=== PATIENT | female | born 1945 | race Caucasian/White ===

== ENCOUNTER → 2019-06-08 | Day surgery (SDC) | payer MEDICARE ==
[2019-06-07 09:48] VITALS: BMI 45.4
[~2019-06-08] MED LIST: Bupivacaine PF 0.5% 30 ML VIAL ONE; EPINEPHrine 1 MG/ML AMP ONE; Lidocaine 2% PF 5 ML VIAL ONE
== END ==
LOC: SDC 11:10
PROVIDERS: ATTEND Anesthesiology Pain Medicine
DX: M54.16 Radiculopathy, lumbar region (principal); G89.4 Chronic pain syndrome; M96.1 Postlaminectomy syndrome, not elsewhere classified; Z53.29 Procedure and treatment not carried out because of patient's decision for other reasons
CPT/HCPCS: J0171; J2001; S0020

== ENCOUNTER 2019-09-20 13:39 | Outpatient (CLI) | payer MEDICARE ==
[~2019-09-20 13:39] MED LIST changes: -Bupivacaine PF 0.5% 30 ML VIAL ONE; -EPINEPHrine 1 MG/ML AMP ONE; -Lidocaine 2% PF 5 ML VIAL ONE; +Magnevist 469MG/ML 20 ML VIAL ONE
--- NOTE | 2019-09-20 17:18 | MRI ---
MRI LUMBAR SPINE WITH AND WITHOUT CONTRAST: DATE: 09/20/2019 HISTORY: 73-year-old female with lumbar spinal stenosis with neurogenic claudication ICD-10: M 48.062, low leonor k pain with bilateral lower extremity weakness COMPARISON: 01/05/2014 TECHNIQUE: Multiple sequences obtained in axial and sagittal planes, pre and post IV injection of gadolinium-bas ed contrast agent. FINDINGS: Cross fused ectopia of the kidneys. 5 lumbar-type vertebrae. Distended urinary bladder. As previously demonstrated, there remain interbody graft material, as well as anteriorly placed screw s extending deep into the endplates and vertebral bodies, at the L4-5 and L5-S1 disc spaces. Now, there are new bilateral pedicle screws at L3, and new interbody cage material at L3-4 disc space . The plain radiograph of today demonstrates that the vertical interlocking rods are bilaterally fractu red at L4-5, and displaced mildly. There also a new midline decompressive laminectomy defect at L3-4. Broadly abutting the dorsal surface of the thecal sac, there is a new approximately 3.5 x 3 x [address] operative fluid collection posterior to the spinal canal, occupying the laminectomy defect, between the lateral masses. The magnetic susceptibility artifact caused by the metallic hardware make s it slightly difficult to evaluate for enhancement. Posterior to the dorsal lumbar fascia, extending from approximately the L1 level to the lower sacral levels, there are extensive, very irregular T2 hyperintense signal abnormalities throughout the posterior subcutaneous fat. This is nonspecific, and could represent postoperative edema, granulation tissue, scar tissue, or a combination of these. This is greater than on the previous MRI. Minimal grade 1 anterolisthesis of L4 on L5 is unchanged. No high-grade narrowing of the T12-L1, L1-2 , or L2-3 disc spaces. T12-L1:No significant central or neural foraminal stenosis as seen on sagittal images. Axial images n ot obtained at this level. L1-2:Mild disc bulge. Mild bilateral neural foraminal stenosis. No high-grade central stenosis. L2-3:Slight retrolisthesis of L2 on L3. Disc space preserved. There is new moderate ligamentum flavum thickening due to facet DJD. Minimal disc bulge. These factors result in new moderate central spinal canal stenosis and moderate bilateral neural foraminal stenosis. L3-4:The new laminectomy results in resolution of the previously demonstrated high-grade central spin al canal stenosis. The thecal sac is now generous. No significant right neural foraminal stenosis. Possible mild or moderate left neural foraminal stenosis. (Difficult to evaluate neural foramina yanelis use of hardware artifact) L4-5:There appears to be old bilateral hemilaminotomy defects, as was the case previously. New greate r degenerative hypertrophy of left facet complex slightly indents left lateral edge of the thecal sac. No high-grade central spinal canal stenosis. There is left lateral recess stenosis and moderate left neural foraminal stenosis. Mild right neural foraminal stenosis. L5-S1:No central stenosis. Mild right neural foraminal stenosis. Mild to moderate left neural foramin al stenosis. IMPRESSION: 1) in addition to the previously demonstrated posterior lumbar interbody fusion at L4-L5-S1 with hard taylor, there is now new posterior lumbar interbody fusion with hardware at L3-4. 2) the vertical interlocking rods are bilaterally broken at L4-5. It is assumed that this was intenti onal to facilitate placement of the new hardware, but correlation with surgical details is recommended. 3) interval decompressive laminectomy at L3-4, relieving the previously demonstrated high-grade centr al spinal canal stenosis there. 4.) moderate size post surgical fluid collection abutting the dorsal surface of thecal sac from L3-4 to L4-5 at the sites of new laminectomies there. 5) extensive postsurgical changes in the dorsal subcutaneous fat. 6) interval development of bilateral facet osteoarthrosis at L2-3, resulting in new moderate central spinal canal stenosis. 7) various degrees of neural foraminal stenosis 8) Crossed fused ectopia of the kidneys.
--- NOTE | 2019-09-20 19:01 | RAD ---
LUMBAR SPINE: 09/20/19 Two views. HISTORY: Spinal stenosis. Compared to a CT cervical spine from 2015. Anterior screws transfix L4-5 and L5-S1 with interbody implants. These were present on 2015 exam. Ped icle screws at L5-S1 are again noted and were present at that time. New pedicle screws have been plac ed at L2-3 with interbody implant at this level since the prior CT. The lateral rods connecting these pedicle screws on each side are not contiguous. Recommend clinical correlation regarding possible fracture of these robs at the L3-4 level. There is mild degenerative spurring from the lumbar vertebrae. Slight scoliotic curvature to the left on the AP projection. IMPRESSION: Degenerative and postoperative changes of lumbar spine as described. POS: PAULIE
== END 2019-09-20 13:40 | disposition home or self-care (01) ==
LOC: TBSIIMAG 13:39
PROVIDERS: ATTEND Nurse Practitioner Family
DX: M48.062 Spinal stenosis, lumbar region with neurogenic claudication (principal); M47.816 Spondylosis without myelopathy or radiculopathy, lumbar region; Q63.2 Ectopic kidney; Z98.890 Other specified postprocedural states; Z98.1 Arthrodesis status
CPT/HCPCS: 72100; 72158; 82565; A9579

== ENCOUNTER 2019-10-14 05:56 | Outpatient (CLI) | payer MEDICARE, OTHER ==
[2019-10-15 12:15] LABS: SARS-CoV-2 MS2 Positive; SARS-CoV-2 N Gene Negative; SARS-CoV-2 S Gene Negative; SARS-CoV-2 orf1ab Negative
== END 2019-10-14 05:57 | disposition home or self-care (01) ==
LOC: LABBT 05:56
PROVIDERS: ATTEND Anesthesiology Pain Medicine
DX: Z01.812 Encounter for preprocedural laboratory examination (principal); Z11.59 Encounter for screening for other viral diseases; M54.16 Radiculopathy, lumbar region; M96.1 Postlaminectomy syndrome, not elsewhere classified; G89.4 Chronic pain syndrome
CPT/HCPCS: 87635; U0003

== ENCOUNTER 2019-10-18 10:37 | Day surgery (SDC) | payer MEDICARE ==
[2019-10-11 11:07] VITALS: BMI 45.4
[2019-10-18] MEDS ORDERED: Sodium Chloride 0.9% 0 ML ONE (11:49)
[2019-10-18] MEDS ORDERED: CEFAZOLIN 1 GM VIAL ONE (11:49)
[2019-10-18] MEDS ORDERED: Sodium Chloride 0.9% 100 ML ONE (11:50)
[2019-10-18] MEDS ORDERED: Fentanyl 100 MCG/2 ML VIAL ONE (12:09)
[2019-10-18] MEDS ORDERED: Propofol 1,000 MG/100 ML VIAL IV ONE (12:09)
[2019-10-18] MEDS ORDERED: Bupivacaine PF 0.5% 30 ML VIAL ONE (12:27)
[2019-10-18] MEDS ORDERED: EPINEPHrine 1 MG/ML AMP ONE (12:27)
[2019-10-18] MEDS ORDERED: Lidocaine 2% PF 5 ML VIAL ONE (12:27)
[2019-10-18] MEDS ORDERED: Midazolam HCl 2 mg/2 ml Vial ONE (12:44)
--- NOTE | 2019-10-18 14:39 | RAD ---
Thoracic spine one view intraoperative fluoroscopy HISTORY: Back pain. Dorsal column stimulator placement. FINDINGS: Intraoperative fluoroscopy was provided for stimulator placement as performed by Dr. Nando villela. Single spot fluoroscopic image shows metallic wires/dorsal column stimulator leads projecting over the central spinal canal of the thoracic spine.
--- NOTE | 2019-10-18 15:09 | OP ---
DATE OF PROCEDURE: 10/18/2019 PREOPERATIVE DIAGNOSES: 1. Chronic lumbar radiculopathy. 2. Post-laminectomy syndrome. 3. Chronic pain. POSTOPERATIVE DIAGNOSES: 1. Chronic lumbar radiculopathy. 2. Post-laminectomy syndrome. 3. Chronic pain. PROCEDURES PERFORMED: 1. Implantation of a right spinal cord stimulation electrode array. 2. Implantation of a left spinal cord stimulation electrode array. 3. Implantation of internal pulse generator. 4. Intraoperative programing. ANESTHESIA: TIVA. COMPLICATIONS: None. ESTIMATED BLOOD LOSS: Less than 20 mL. DESCRIPTION OF PROCEDURE: Risks and benefits were discussed. Informed consent was obtained, was taken to the OR, prepped and draped in standard fashion. Preoperative antibiotics were provided with Ancef 1 g prior to beginning the procedure. Fluoroscopic guidance was used to identify the thoracolumbar junction. T12-L1 interspace was chosen as access into the spinal canal. The spinous processes of L1 through L3 were easily identified. After adequate local anesthesia, incision was carried out in blunt dissection using Metzenbaum's and Bovie for dissection to the supraspinous ligament. Anesthesia was also carried to the tunneling site and into the pocket site into the left buttock. The supplied Touhy needle was advanced into the T12-L1 interspace and the second was advanced into the L1-L2 interspace. Loss of resistance technique, one pass, no paresthesia, CSF, or heme. The patient was awake and conversive during Touhy placement and lead placement. First lead was placed over the dorsal columns with the most cephalad electrode at the superior endplate of T7. The second electrode was then placed to allow parallel with the first. Intraoperative programing achieved with appropriate back and bilateral leg stimulation using multiple pulse width, amplitudes in lead arrays. The leads were then anchored using the supplied anchors to the fascia using two 2-0 silk sutures and each lead was locked into place. Incision was then carried out over the left buttock to the fascia. Fascia was undermined to house the generator. Tunneling was accomplished between incision using the supplied straw tunneler. The leads were passed through the straw. Straw was removed from the field. Leads were placed in the IPG and all set screws were tightened using the supplied ratcheted screwdriver. The lead was placed in the pocket riding side out. All contacts had low impedance. Closure was accomplished in layers using 0 Vicryl, 2-0 Vicryl, and running subcuticular 3-0 Rapide. Skin with complete closure with Dermabond, 4 x 4's and Medipore tape for dressing. Prior to closure, all counts were correct x2. Job ID: [id number]
[2019-10-18] MEDS ORDERED: Morphine 2 MG/ML VIAL ONE (15:18)
--- NOTE | 2019-10-18 15:56 | EKG ---
Test Reason : PREOP Blood Pressure : / mmHG Vent. Rate : 057 BPM Atrial Rate : 057 BPM P-R Int : 180 ms QRS Dur : 086 ms QT Int : 452 ms P-R-T Axes : 058 054 049 degrees QTc Int : 439 ms Sinus bradycardia Otherwise normal ECG When compared with ECG of 31-JUL-2014 08:49, No significant change was found Confirmed by CJ STAPLES, SFaizan ([id number]) on 10/18/2019 3:56:13 PM Referred By: NATALIE Confirmed By:DR. Kings CORONA MD
== END 2019-10-18 16:15 | disposition home or self-care (01) ==
LOC: SDC 10:37
PROVIDERS: ATTEND Anesthesiology Pain Medicine
PROC: 0JH70DZ Insertion of Multiple Array Stimulator Generator into Back Subcutaneous Tissue and Fascia, Open Approach (ICD-10-PCS; principal; 2019-10-18)
PROC: 00HU3MZ Insertion of Neurostimulator Lead into Spinal Canal, Percutaneous Approach (ICD-10-PCS; 2019-10-18)
DX: M54.16 Radiculopathy, lumbar region (principal); M96.1 Postlaminectomy syndrome, not elsewhere classified; G89.29 Other chronic pain; M48.062 Spinal stenosis, lumbar region with neurogenic claudication; M46.1 Sacroiliitis, not elsewhere classified; I10 Essential (primary) hypertension; E78.00 Pure hypercholesterolemia, unspecified; M19.90 Unspecified osteoarthritis, unspecified site; F32.9 Major depressive disorder, single episode, unspecified; G47.30 Sleep apnea, unspecified; R73.03 Prediabetes; E78.5 Hyperlipidemia, unspecified; M79.7 Fibromyalgia; F41.9 Anxiety disorder, unspecified; Z79.84 Long term (current) use of oral hypoglycemic drugs; Z79.899 Other long term (current) drug therapy; Z88.5 Allergy status to narcotic agent; Z88.6 Allergy status to analgesic agent; Z88.8 Allergy status to other drugs, medicaments and biological substances; Z98.1 Arthrodesis status
CPT/HCPCS: 63650 ×2; 63685; 72070; 76000; 93005; C1767; C1778; J2270; 93010; J0171; J0690; J2250; J2704; J3010; J3490; S0020